=== PATIENT | female | born 1985 | race Caucasian/White ===

== ENCOUNTER 2022-11-04 10:35 | Outpatient (CLI) | payer OTHER, SELFPAY | END 2022-11-04 10:36 | disposition home or self-care (01) | PROVIDERS: PCP Physician Assistant Medical; Visit Provider Physician Assistant Medical | DX: Z01.419 Encounter for gynecological examination (general) (routine) without abnormal findings (principal); I10 Essential (primary) hypertension; Z13.6 Encounter for screening for cardiovascular disorders; Z13.29 Encounter for screening for other suspected endocrine disorder | CPT/HCPCS: 80061; 84443 ==

== ENCOUNTER 2023-01-20 08:47 | Emergency (ER) | payer OTHER, SELFPAY ==
[2023-01-20] VITALS (9 sets, daily range): BP systolic 91–118; BP diastolic 47–72; PULSE 65–90; RESP 18; TEMP 36.6; O2SAT 97–100; BMI 28.1
--- NOTE | 2023-01-20 09:20 | ED_ITS ---
HPI - General Adult General Chief complaint: Headache/Migraine Stated complaint: +for covid has a migraine Time Seen by Provider: 01/20/23 08:57 History of Present Illness HPI narrative: Patient is a 37 year white female who has diagnosis of COVID 2-3 days ago. She has had pretty much the constellation of symptoms with COVID with mild sore throat had frontal headache diarrhea body aches. The patient are reports that she has not had a history of migraines but has some frontal pressure and headache. She has had trouble sleeping. She did receive vaccine and booster. She is otherwise quite healthy. She is allergic to penicillin and has had endometriosis and anxiety as well as mild blood pressure elevation. Related Data Home Medications Medication Instructions Recorded Confirmed cholecalciferol (vitamin D3) 50 50 mcg PO QDAY 07/03/22 09/15/22 mcg (2,000 unit) capsule Allergies Allergy/AdvReac Type Severity Reaction Status Date / Time Penicillins Allergy Intermediate Rash Verified 11/04/22 10:19 Review of Systems Status of ROS: Reports: 6 or more systems reviewed and unremarkable except as noted in History and below PFSH PFS Medical History ?Z34.90 - Encounter for supervision of normal , unspecified, unspecified trimester (ICD-10) Normal spontaneous vaginal delivery ?O80 - Encounter for full-term uncomplicated delivery (ICD-10) Infertility Surgical History History of laparoscopy ?Z98.890 - Other specified postprocedural states (ICD-10) Family History Family/Other Diabetes Hyperlipidemia Psychiatric disorder Mother Hyperlipidemia Father Psychiatric disorder Other Migraine Social History Narrative: engaged ( Stone); Dylan 18 month old son. 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 History of marijuana use Occasional alcohol consumption Smoking Status: Never smoker Do you use any of these nicotine containing products: None Second hand tobacco smoke exposure: No How often do you have a drink containing alcohol: monthly or less How many standard drinks containing alcohol do you have on a typical day: 1 or 2 How often do you have six or more drinks on one occasion: Never AUDIT-C Alcohol total score: 1 Non-prescribed substance use: denies use Little interest or pleasure in doing things: not at all Feeling down, depressed, or hopeless: not at all service: No Exam Narrative: Exam Narrative: Objective vital signs unremarkable Alert orient x3 Noncyanotic No facial asymmetry no scleral icterus mouth clear throat clear Neck is supple Denies abdominal pain, neurologic is grossly nonfocal Peripheral perfusion is good Const: Vital Signs, click to edit/add: Vital Signs - 24 hr 01/20/23 08:55 Temperature 97.8 F Pulse Rate [Pulse Oximeter] 77 Respiratory Rate 18 Blood Pressure [Ri ght Upper Arm] 118/72 Pulse Oximetry 98 Oxygen Delivery Me thod Room Air Course Vital Signs Vital signs: Initial Vital Signs Temperature 97.8 F 01/20/23 08:55 Temperature Source Temporal Artery Scan 01/20/23 08:55 Pulse Rate 77 01/20/23 08:55 Pulse Rhythm Regular 01/20/23 08:55 Respiratory Rate 18 01/20/23 08:55 Blood Pressure 118/72 01/20/23 08:55 Blood Pressure Mean 87 01/20/23 08:55 Blood Pressure Position Supine 01/20/23 08:55 Pulse Oximetry 98 01/20/23 08:55 Oxygen Delivery Method Room Air 01/20/23 08:55 Vital Signs Temperature 97.8 F 01/20/23 08:55 Pulse Rate 77 01/20/23 08:55 Respiratory Rate 18 01/20/23 08:55 Blood Pressure 118/72 01/20/23 08:55 Pulse Oximetry 98 01/20/23 08:55 Oxygen Delivery Method Room Air 01/20/23 08:55 Temperature 97.8 F 01/20/23 08:55 Pulse Rate 77 01/20/23 08:55 Respiratory Rate 18 01/20/23 08:55 Blood Pressure 118/72 01/20/23 08:55 Pulse Oximetry 98 01/20/23 08:55 Oxygen Delivery Method Room Air 01/20/23 08:55 Medical Decision Making MDM Narrative Medical decision making narrative: Patient has stigmata of COVID-19 disease, with multiple symptoms consistent with that. I think at this point to help some of her symptomology be reasonable to give her IV fluid 1 L, Toradol 30 mg IV Benadryl 25 mg IV and Reglan 10 mg IV, also give her Solu-Medrol 125 IV. She denies . She has not had sexual activity for the last couple months, has had regular menstrual cycle, she also has trouble with infertility. She is very confident she is not . Will treat as above, and return if problems or concerns, update her regular doctor next 2-3 days, return to ED problems or concerns. Patient will get a ride home from her spouse. Discharge Plan Discharge Clinical Impression: COVID-19, Headache Patient Disposition: Home w/ Parent or Adult Condition: Stable Additional Instructions: Rest, fluids, Tylenol Advil as needed, light activity for the next 3-4 days. Return to primary care as needed, return to ED problems concerns. Return to ED if worsens or have other difficulty at her discretion. Activity Level: Light activity Discharge Diet: Regular Prescriptions: No Action cholecalciferol (vitamin D3) 50 mcg (2,000 unit) capsule 50 mcg PO QDAY Follow Up/Referrals: Christy Solomon PA-C [Primary Care Provider] - Stand Alone Forms: [employer] Info Instructions
[2023-01-20] MEDS: 0.9 % SODIUM CHLORIDE 1000 ml 1,000 ML 6000 ML IV (09:33)
[2023-01-20] MEDS: KETOROLAC 30 MG/ML inj IVP (09:41)
[2023-01-20] MEDS: diphenhydrAMINE 50 MG/ML inj 25 MG IVP (09:42)
[2023-01-20] MEDS: METHYLPREDNISOLONE SOD SUCC 62.5 MG/ML (125) 125 MG IVP (09:45)
[2023-01-20] MEDS: METOCLOPRAMIDE HCL 10 MG in 0.9 % SODIUM CHLORIDE 100 ml 100 ML 306 MG IV (09:56)
== END 2023-01-20 10:55 | disposition home or self-care (01) ==
PROVIDERS: Emergency Provider Family Medicine; PCP Physician Assistant Medical
DX: U07.1 COVID-19 (principal); R51.9 Headache, unspecified
CPT/HCPCS: 96374; 96375; 99283; 99284; J1200; J1885; J2765; J2930; J7030

== ENCOUNTER 2024-03-10 09:40 | Emergency (ER) | payer OTHER, SELFPAY ==
[2024-03-10 09:47] VITALS: BP 137/85; RESP 12; TEMP 36.4; O2SAT 99; BMI 24.8
--- NOTE | 2024-03-10 10:10 | CRLHL7_ITS ---
For Patients: As a result of the Century Cures Act, medical imaging exams and procedure reports are released immediately into your electronic medical record. You may view this report before your referring provider. If you have questions, please contact your health care provider. INDICATION: DIZZINESS TECHNIQUE: CT of the head was performed without IV contrast. COMPARISON: None. FINDINGS: Parenchyma: No acute hemorrhage, infarction, or mass. Ventricles and extra-axial spaces: Appropriate for age. Visualized paranasal sinuses: Mild mucosal retention cyst versus polyp of the left maxillary sinus. Mastoid air cells: Sclerotic right mastoid air cells. Bones: No focal abnormality. Additional comment: None. IMPRESSION: No acute intracranial abnormality. Please note that all CT scans at this facility use dose modulation, iterative reconstruction, and/or weight-based dosing when appropriate to reduce radiation dose to as low as reasonably achievable. Dictated by Johan Cordova MD @ 03/10/2024 11:12:01 AM (Electronically Signed)
--- NOTE | 2024-03-10 10:12 | ED.DIZZY ---
HPI - Dizziness General Chief Complaint: Dizziness/Vertigo Stated Complaint: dizziness/numbness in face/feels weird Time Seen by Provider: 03/10/24 10:03 History of Present Illness HPI Narrative: Patient is a 38-year-old woman who has had vertigo for the last 3-4 weeks. She seen her primary doctor to occasions and has had a consultation with [facility]. She has completed a course of antibiotics as well as prednisone. She is currently on allergy medication. Thing is been really helpful for her symptoms. Today her dizziness is worse and she feels like her vision is blurry. She has no other stroke symptoms such as numbness tingling weakness. She has been working with physical therapy they do not believe that she has benign positional vertigo. Patient is nauseous due to her dizziness and has a mild headache on the left. No other significant symptoms have been noted. Related Data Home Medications ?Medication ?Instructions ?Recorded ?Confirmed cholecalciferol (vitamin D3) 50 50 mcg PO QDAY 07/03/22 03/06/24 mcg (2,000 unit) capsule fluticasone propionate 50 1 spray intranasal QDAY 02/09/24 03/06/24 mcg/actuation nasal spray,suspension (Flonase Allergy Relief) Previous Rx's ?Medication ?Instructions ?Recorded ondansetron 4 mg disintegrating 4 mg PO Q8H PRN nausea and 02/19/24 tablet vomiting #30 tabs valacyclovir 1 gram tablet 1,000 mg PO BID #14 tabs 02/25/24 prednisone 20 mg tablet 40 mg (2 x 20 mg) PO QDAY #10 tabs 03/03/24 levocetirizine 5 mg tablet 5 mg PO QPM PRN allergy symptoms 03/06/24 #90 tabs Allergies Allergy/AdvReac Type Severity Reaction Status Date / Time Penicillins Allergy Intermediate Rash Verified 03/06/24 12:52 Review of Systems Status of ROS: Reports: 10 or more systems reviewed and unremarkable except as noted in History and below [facility] Medical History Skin infection ?L08.9 - Local infection of the skin and subcutaneous tissue, unspecified (ICD-10) ?Z34.90 - Encounter for supervision of normal , unspecified, unspecified trimester (ICD-10) Normal spontaneous vaginal delivery ?O80 - Encounter for full-term uncomplicated delivery (ICD-10) Infertility Surgical History History of laparoscopy ?Z98.890 - Other specified postprocedural states (ICD-10) Family History Family/Other Diabetes Hyperlipidemia Psychiatric disorder Mother Hyperlipidemia Father Psychiatric disorder Other Migraine Social History Narrative: engaged ( Stone); Dylan 18 month old son. 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 History of marijuana use Occasional alcohol consumption Smoking Status: Never smoker Do you use any of these nicotine containing products: None Second hand tobacco smoke exposure: No How often do you have a drink containing alcohol: monthly or less How many standard drinks containing alcohol do you have on a typical day: 1 or 2 How often do you have six or more drinks on one occasion: Never AUDIT-C Alcohol total score: 1 Non-prescribed substance use: denies use Little interest or pleasure in doing things: not at all Feeling down, depressed, or hopeless: not at all service: No Exam Narrative: Exam Narrative: EXAM GENERAL: Patient appears comfortable and well. EYES: No scleral icterus. ENT: Tympanic membranes and oropharynx normal. THYROID: no thyroid nodules or thyromegaly. LYMPH: No supraclavicular or cervical lymphadenopathy. SKIN: Visible skin seen during exam normal or with benign process only. EXT: No dependent lower extremity pedal edema. HEART: Regular rate and rhythm with no murmurs, rubs, or gallops. LUNGS: Clear to auscultation bilaterally with no crackles or wheezes. ABD: Soft, non tender, non distended. PSYCH: Good eye contact, speech is not pressured. Neurologic cranial nerves 2-12 grossly intact no focal defects. Const: Vital Signs, click to edit/add: Vital Signs - 24 hr 03/10/24 09:47 Temperature 97.6 F Respiratory Rate 12 Blood Pressure [Ri ght Upper Arm] 137/85 Pulse Oximetry 99 Oxygen Delivery Me thod Room Air Course Course ED Course: I am concerned about her symptoms and I do think CT of the head is reasonable. We will also give her 1 L of normal saline 4 mg of Zofran 50 mg of Benadryl and 30 mg of Toradol. Vital Signs Vital signs: Initial Vital Signs Temperature 97.6 F 03/10/24 09:47 Temperature Source Temporal Artery Scan 03/10/24 09:47 Pulse Rhythm Regular 03/10/24 09:47 Respiratory Rate 12 03/10/24 09:47 Blood Pressure 137/85 03/10/24 09:47 Blood Pressure Mean 102 03/10/24 09:47 Pulse Oximetry 99 03/10/24 09:47 Oxygen Delivery Method Room Air 03/10/24 09:47 Vital Signs Temperature 97.6 F 03/10/24 09:47 Respiratory Rate 12 03/10/24 09:47 Blood Pressure 137/85 03/10/24 09:47 Pulse Oximetry 99 03/10/24 09:47 Oxygen Delivery Method Room Air 03/10/24 09:47 Temperature 97.6 F 03/10/24 09:47 Respiratory Rate 12 03/10/24 09:47 Blood Pressure 137/85 03/10/24 09:47 Pulse Oximetry 99 03/10/24 09:47 Oxygen Delivery Method Room Air 03/10/24 09:47 Medications Administered Medications: Discontinued Medications Generic Name Dose Route Start Last Admin Trade Name Freq PRN Reason Stop Dose Admin Diphenhydramine HCl 50 mg 03/10/24 10:10 03/10/24 10:25 Diphenhydramine 50 Mg/Ml Inj IVP 03/10/24 10:11 50 mg ONCE ONE Administration Sodium Chloride 1,000 mls @ 1,000 mls/hr 03/10/24 10:11 03/10/24 11:32 0.9 % Sodium Chloride 1000 Ml IV 03/10/24 11:10 Infused .Q1H ELISSA Infusion Ketorolac Tromethamine 30 mg 03/10/24 10:10 03/10/24 10:25 Ketorolac 30 Mg/Ml Inj IVP 03/10/24 10:11 30 mg ONCE ONE Administration Ondansetron HCl 4 mg 03/10/24 10:10 03/10/24 10:24 Ondansetron 2 Mg/Ml Inj IVP 03/10/24 10:11 4 mg ONCE ONE Administration MDM - Dizziness MDM Narrative Medical decision making narrative: Patient presents with type clinical situation of refractory dizziness. She has seen primary care multiple times in is seen ear nose and throat. She is completing physical therapy. She has had a course of antibiotics and course of cortical steroids. She has a normal exam today. I did do a CT of her head which is unremarkable. At this point I would treat her symptoms with Ativan to get some rest over the next several days on a p.r.n. basis and would stop her Topamax at that seems to make things worse. I also recommended Neurology follow-up with likely MRI. Discharge Plan Discharge Clinical Impression: Vertigo Patient Disposition: Home, Self-Care Condition: Stable Instructions: Vertigo (ED) Additional Instructions: Discontinue Topamax Ativan as needed for breakthrough symptoms Contact her primary doctor to arrange neurology follow-up with MRI. Activity Level: No Restrictions Discharge Diet: Regular Prescriptions: No Action cholecalciferol (vitamin D3) 50 mcg (2,000 unit) capsule 50 mcg PO QDAY levocetirizine 5 mg tablet 5 mg PO QPM PRN (Reason: allergy symptoms) Qty: 90 1RF fluticasone propionate [Flonase Allergy Relief] 50 mcg/actuation spray,suspension 1 spray intranasal QDAY Rx Instructions: administer into each nostril ondansetron 4 mg tablet,disintegrating 4 mg PO Q8H PRN (Reason: nausea and vomiting) Qty: 30 0RF prednisone 20 mg tablet 40 mg PO QDAY Qty: 10 0RF valacyclovir 1 gram tablet 1,000 mg PO BID Qty: 14 0RF Follow Up/Referrals: Christy Solomon PA-C [Primary Care Provider] - Stand Alone Forms: [employer] Info Instructions
[2024-03-10] MEDS: ONDANSETRON 2 MG/ML inj 4 MG IVP (10:24)
[2024-03-10] MEDS: diphenhydrAMINE 50 MG/ML inj IVP (10:25)
[2024-03-10] MEDS: KETOROLAC 30 MG/ML inj IVP (10:25)
[2024-03-10] MEDS: 0.9 % SODIUM CHLORIDE 1000 ml 1,000 ML IV (11:12)
[2024-03-10 12:30] VITALS: O2SAT 97
[2024-03-10 12:31] VITALS: BP 126/75; PULSE 70; RESP 14
== END 2024-03-10 12:35 | disposition home or self-care (01) ==
PROVIDERS: Emergency Provider Internal Medicine; PCP Physician Assistant Medical
DX: R42 Dizziness and giddiness (principal)
CPT/HCPCS: 70450; 96374; 96375; 99283; J1200; J1885; J2405; J7030

== ENCOUNTER 2024-03-23 08:06 | Outpatient (CLI) | payer OTHER, SELFPAY ==
--- NOTE | 2024-03-23 08:15 | CRLHL7_ITS ---
For Patients: As a result of the Cures Act, medical imaging exams and procedure reports are released immediately into your electronic medical record. You may view this report before your referring provider. If you have questions, please contact your health care provider. INDICATION: Migraines. TECHNIQUE: Brain and temporal bone MRI without and with contrast. 20 cc of gadolinium based contrast administered. COMPARISON : Head CT from 03/10/2024. brain MRI from 11/14/2018. FINDINGS: The membranous labyrinths are normal in appearance, with no signal abnormality or malformation. No mass or pathologic enhancement within the internal auditory canals or the cerebellopontine angle cisterns. The cisternal and canalicular segments of the 7th/8th cranial nerve complexes are normal in appearance. The other imaged cranial nerve segments are normal in appearance. Brainstem and cerebellum are normal. No evidence of acute ischemia. No evidence of acute or chronic intracranial blood products. No mass or pathologic intracranial enhancement. No intracranial signal abnormality. No hydrocephalus or extra-axial collections. The pituitary gland, parasellar structures and optic chiasm are normal. All the major intracranial vascular structures demonstrate normal flow-related signal. The orbital contents are normal. No calvarial or skull base marrow replacing process. No obstructive sinus disease. No extracranial soft tissue findings. IMPRESSION: 1. Normal appearance of the internal auditory pathways on high resolution imaging of the temporal bones. No mass or pathologic enhancement within the internal auditory canals or CPA cisterns. Normal appearance of the 7th/8th cranial nerves. 2. No other significant intracranial pathology. Dictated by Zion Ghosh MD @ 03/24/2024 9:49:05 AM (Electronically Signed)
== END 2024-03-23 08:07 | disposition home or self-care (01) ==
LOC: MRI 08:06
PROVIDERS: PCP Physician Assistant Medical; Visit Provider Physician Assistant Medical
DX: G43.809 Other migraine, not intractable, without status migrainosus (principal); R42 Dizziness and giddiness
CPT/HCPCS: 70553; A9575

== ENCOUNTER 2024-03-27 09:30 | Outpatient (RCR) | payer OTHER, SELFPAY ==
--- NOTE | 2024-02-25 16:14 | PT.OPE ---
PT [place] Outpatient Eval PT [facility] Outpatient Eval Start: 02/25/24 10:53 Freq: Status: Active Protocol: Document 02/25/24 10:55 TARAH (Rec: 02/25/24 11:00 TARAH [id number]) E-signed By Dimitris Ayon DPT, MS Physical Therapy Outpatient Evaluation Insurance Information Insurance Name [employer] Medical Diagnosis Dizziness and giddiness Treating Diagnosis Dizziness, L vestibular hypofunction, sensory disorganization, imbalance. Subjective Subjective Patient is a 38 y.o. female who presents to PT with c/o high levels of dizziness of insidious origin 3 weeks ago. Describes sxs as mod-high levels of disorientation feeling like she is moving which has been worse on days with stormy weather. Decreased intensity of sxs during clear days without clouds. Notes L ear pressure, pain, crackling noises and occasional decreased hearing in her L ear . Dx with eustachian tube dysfunction by her provider Christy Solomon PA-C on 02/09/24 . Allergy medications made her itchy and drowsy with no noticeable sx improvement. Sxs changed primarily to dizziness sensations after her PA visit and was provided prednisone for a suspected vestibular neuritis at urgent care on 02/19/24. Today has been a bad day with elevated stress and anxiety. Denies room spinning dizziness with positional changes with increased sxs while sitting, looking at bright screens, extended computer use and elevated stress levels being most provoking. Standing provides some sx relief. Works from home for [employer] and has not been driving due to dizziness. Denies previous hx of vertigo. Meclizine caused increased fatigue and has not used recently. Sxs improve later in the day after her son goes to bed when she is able to relax with the middle of the day being most challenging . PMH includes depression and anxiety. Pt hopes to resolve dizziness to improve nataliya to daily activities and return to driving. 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 All BPPV testing negative. Significant time spent discussing different causes of dizziness and prognosis vestibular neuritis. Attempted vision exercises today but pt unable to nataliya introductory gaze stabilization, VOR cancellation and dynamic visual acuity exercises due to high levels of dizziness. [facility] clinic contacted following her session to inquire about a possible anti-viral medication or a second round of prednisone due to high levels of continued sxs and to increase nataliya to vestibular exercises during her follow up PT visit next week. Christy Solomon PA-C was not in the clinic today and request was forwarded to Dr. Pavel MD. He did not believe an anti- viral medication would be effective due to limited research showing effectiveness for vestibular neuritis sx improvement and he planned on contacting Fior to discuss this and her sxs with her. She responded well to MT and stretching with decreased sxs intensity and anxiety following today?s session. She would benefit from continued skilled therapy to address these limitations. Primary Functional Limitations Walking, uneven surfaces, quick head movements, walking in dark Plan of Care Rehabilitation Potential Excellent Physical Therapy Goals Therapy goals to be completed in 10 weeks: 1. 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 2. Patient will report resolution of dizziness sxs with all daily and work activities for >4 consecutive days. 3. Patient will display improved Romberg balance on firm and foam surfaces with eyes closed >6 sec with minimal sway to improve safety walking in dark and on compliant surfaces. 4. Pt will report >75% improvement in DHI questionnaire to significantly improve nataliya to daily activities. Coordination/Communication With Referral Source Treatment Plan/Direct Interventions Manual Therapy,Neuromuscular Re-ed,Therapeutic Exercises Frequency/Duration 1-2x per week for at least 6- 10 visits, decreasing frequency as able. Patient Will Be Discharged From Therapy Completion of LTG(s),Skills Plateau,Independent w/HEP, Independently Progressing Evaluation Billing Untimed Code Treatment Minutes 35 Complexity Moderate Certification Information Provider Signature Required Communication Only-No Signature Required
== END 2024-07-25 23:59 | disposition home or self-care (01) ==
PROVIDERS: PCP Physician Assistant Medical; Visit Provider Physician Assistant Medical
DX: H81.8X2 Other disorders of vestibular function, left ear (principal); R26.89 Other abnormalities of gait and mobility; Z51.89 Encounter for other specified aftercare
CPT/HCPCS: 97110; 97140; 97162

== ENCOUNTER 2024-03-29 15:05 | Outpatient (CLI) | payer OTHER, SELFPAY | END 2024-03-29 15:06 | disposition home or self-care (01) | PROVIDERS: PCP Physician Assistant Medical; Visit Provider Emergency Medicine | DX: R19.7 Diarrhea, unspecified (principal); R11.0 Nausea; Z13.6 Encounter for screening for cardiovascular disorders; Z13.1 Encounter for screening for diabetes mellitus | CPT/HCPCS: 80061; 82947; 86231; 86258; 86364 ==

== ENCOUNTER 2025-02-03 09:23 | Emergency (ER) | payer BC, SELFPAY ==
--- OUTSIDE RECORDS SUMMARY | 2024-03-23 05:00 | XMS_ITS ---
Author Organization [facility] Address [address] [place] [address] Care Team Providers Care Risk Advisor Name Role Phone Christy Solomon Primary Care Provider GABI Schulte [phone] REASON FOR VISIT Inner ear infection follow up, Seen on 03.13.24 Encounters Encounter Location Date Provider Diagnosis [facility] [address] [place] [address] 03/23/2024 GABI EDWARDS Plan Of Treatment No Information Progress Notes * Stephanie PARSONsDOB:1985 (39 yo F)Acc No.[id number]:03/23/2024 Patient: Fior Ho Provider: Roya EDWARDS MD :1985 A ge:38 Y S ex:Female Date:03/23/2024 Address:[address] [id number] Pcp:Christy Solomon Subjective: * Chief Complaints: * I nner ear infection follow up, Seen on 03.13.24 * Electronic signature of LESLIE EDWARDS MD on 02/03/2025 at 09:26 AM CDT Sign off status: Pending * Provider: Roya EDWARDS MD Date: 0 03/23/2024 Generated for Printi ng/Faxing/eTransmitting on: 0 02/03/2025 09:26 AM CDT
--- OUTSIDE RECORDS SUMMARY | 2025-02-03 09:26 | XMS_ITS | Clinical Summary ---
Author Organization [facility] Address [address] [place] [address] Care Team Providers Care Retail Route Supervisor Name Role Phone Elsewhere, Pcp Primary Care Provider Unavailabl e Source Comments Patient records contain information from all sites at [facility]. For routine questions regarding patient records, call [phone] during business hours, M-F 8:00 AM - 5:00 PM Central Time. Record requests for emergency care only can be directed to [phone] at any time.[facility] Allergies Active Allergy Reactions Criticality Noted Date Comments Penicillins Rash High 04/26/2006 Pt does not know the reaction happened as a child Medications LORazepam (Ativan) 0.5 mg tablet Take 0.5 mg by mouth as needed. 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 10/12/2019 Endometriosis 10/12/2019 Counseling Preconception 10/12/2019 Family History Medical History Relation Name Comments Depression Father Marv Suicide Attempts Father Marv Skin cancer Maternal Grandmother Elin Draper Hypertension Mother Chelsea Migraines Mother Chelsea Migraines Mother's Sister 1 Nubia Deleon Obesity Mother's Sister 2 Alma Draper Diabetes Paternal Grandmother Renetta Anxiety disorder Sister Ryan Relation Name Status Comments Father Marv Maternal Grandmother Elin Draper Mother Chelsea Mother's Sister 1 Nubia Deleon Mother's Sister 2 Alma Draper Paternal Grandmother Renetta Sister Ryan Social History Tobacco Use Types Packs/Day Years Used Date Smoking Tobacco: Never Passive Smoke Exposure: Past Smokeless Tobacco: Never Tobacco Cessation:Counseling Given: Not Answered Alcohol Use Standard Drinks/Week Comments Not Currently 3 (1 standard drink = 0.6 oz pur e alcohol) [facility] Utilities Answer Date Recorded In the past 12 months has e electric, gas, oil, or water company threatened to shut off services in your home? No 04/14/2024 Social Connection and Isolat ion Panel [NHANES] Answer Date Recorded In a typical week, how many times do you talk on the phone with family, friends, or neighbors? More than three times a week 08/23/2020 How often do you get togethe r with friends or relatives? Once a week 08/23/2020 How often do you attend chur ch or restoration services? Never 08/23/2020 Do you belong to any clubs o r organizations such as rastafarian groups, unions, fraternal or athletic groups, or school groups? No 08/23/2020 How often do you attend meet ings of the clubs or organizations you belong to? Never 08/23/2020 Are you , , di vorced, , never , or living with a partner? Living with partner 08/23/2020 AUDIT-C Answer Date Recorded Q1: How often do you have a drink containing alc ohol? 2-3 times a week 08/23/2020 Q2: How many drinks containi ng alcohol do you have on a typical day when you are drinking? 1 or 2 08/23/2020 Q3: How often do you have si x or more drinks on one occasion? Never 08/23/2020 Overall Financial Resource Strain (CARDIA) Answe r Date Recorded How hard is it for you to pa y for the very basics like food, housing, medical care, and heating? Not hard at all 08/23/2020 PHQ-2 Answer Date Recorded PHQ-2 Score 0 04/20/2024 [facility] - Occupational Stress Questionnaire Answer Date Recorded Do you feel stress - tense, restless, nervous, or anxious, or unable to sleep at night because your mind is troubled all the time - these days? Only a little 08/23/2020 Exercise Vital Sign Answer Date Recorde d On average, how many days pe r week do you engage in moderate to strenuous exercise (like a brisk walk)? 3 days 04/14/2024 On average, how many minutes do you engage in exercise at this level? 30 min 04/14/2024 Hunger Vital Sign Answer Date Recorded Within the past 12 months, y ou worried that your food would run out before you got the money to buy more. Never true 04/14/20 24 Within the past 12 months, t he food you bought just didn't last and you didn't have money to get more. Never true 04/14/2024 PRAPARE - Transportation Answer Date Re corded In the past 12 months, has l ack of transportation kept you from medical appointments or from getting medications? No 05/2024 In the past 12 months, has l ack of transportation kept you from meetings, work, or from getting things needed for daily living? No 04/14/2024 Depression Answer Date Recor ded PHQ-9 Total Score (max 27) 2 04/20 Nutrition Answer Date Recorded On average, how many serving s of fruits and vegetables do you eat per day (serving size is equal to 1 cup or approximately the size of a tennis ball)? 3-5 04/14/2024 Dental Answer Date Recorded Dental: Regular Dentist No 04/14/20 24 Employment Answer Date Recorded Employment status Employed but not working due t o illness or injury 04/14/2024 Housing Stability Answer Date Recorded What is your living situation today? I have a [facility] [place] [address] to live 04/14/2024 Education Answer Date Recorded What is the highest level of school you have completed or the highest degree you have received? 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 Not on file Not on file Not on file Last Filed Vital Signs Vital Sign Reading Time Taken Comments Blood Pressure 142/80 04/20/2024 7:59 AM CDT Pulse 60 04/20/2024 7:59 AM CDT Temperature 36.6 C (97.9 F) 05/05/2020 9:04 AM CDT Respiratory Rate 15 05/05/2020 9:04 AM CDT Oxygen Saturation 98% 05/05/2020 9:04 AM CDT Inhaled Oxygen Concentration - - Weight 72.5 kg (159 lb 13.3 oz) 04/20/2024 7:59 AM CDT Height 175.1 cm (5' 8.94) 04/20/2024 7:59 AM CD T Body Mass Index 23.65 04/20/2024 7:59 AM CDT Plan of Treatment Health Maintenance Due Date Last Done Comments Cervical/Vaginal Cancer Screening 1983 HIV Screening 1983 Lipid (Cholesterol) Screening 1983 Mammogram 1983 Hepatitis B Vaccines (1 of 3 - 19+ 3-dose series) 2002 COVID-19 Vaccine ( season) 2024 09/12/2021, 12/31/2020, 12/10/2020 Influenza Vaccine (#1) 2024 06/25/2020 Depression Screening (Annual PHQ-2) 09/06/2024 DTaP,Tdap,and Td Vaccines (3 - Td or Tdap) 02/25/2031 02/25/2021, 04/19/1996 Hepatitis B Screening Discontinued 08/08/2019 HPV Vaccines Aged Out No longer eligi ble based on patient's age to complete this topic IPV Vaccines Aged Out No longer eligi ble based on patient's age to complete this topic Pneumococcal vaccine (0-49 years) Aged Out No longer eligible b ased on patient's age to complete this topic Procedures Procedure Name Priority Date/Time Associated Diagnosis Comments HEPATITIS B SURFACE ANTIGEN Routine 08/08/2019 10:20 AM GROUT WORKER from Last 3 Months or Most Recently Relevant to Health Maintenance Results * Hepatitis B Surface Antigen (08/08/2019 10:20 AM GROUT WORKER) EXT Hepatitis B Surface Ag Negative EXTERNAL NON-INTERFACE D LAB Blood (Blood, Venous) us Ordering Provider External M.D. LAB MICROBIOLOGY - BLOOD ORDERABLES Final Result EXTERNAL NON-INTERFACED LAB [address] [place] [address] from Last 3 Months or Most Recently Relevant to Health Maintenance Insurance [facility] Address: [facility] [id number] [place] [address] Advance Directives For more information, please contact: [phone] * Full Code (Latest Code Status on File) Date Activated Date Inactivated Comments 05/05/2020 8:36 AM 05/05/2020 11:42 AM Question Answer Comments Full Code: Discussed * Full Code Date Activated Date Inactivated Comments 05/05/2020 7:19 AM 05/05/2020 8:36 AM Question Answer Comments Full Code: Discussed Care Teams Retail Route Supervisor Relationship Specialty Start Date End Date Elsewhere, Pcp PCP - General Internal Medicine 04/17/24
--- OUTSIDE RECORDS SUMMARY | 2025-02-03 09:26 | XMS_ITS | Clinical Summary ---
Author Organization Lead Address [address] [facility] [place] [address] Care Team Providers Care Radio Presenter Name Role Phone No Ref-Primary, Physician Primary Care Provider Jose Dominguez MD Unavailable Allergies Active Allergy Reactions Criticality Noted Date Comments Penicillins 04/26/2006 Penicillins High 12/28/2011 Pt does not know the reaction happened as a child Medications UNKNOWN MED DOSAGE mini pill Active IBUPROFEN None Entered Active AZITHROMYCIN 500 MG OR TABSIndications: Acute pharyngitis 1 TABLET DAILY 5 0 6 Active Additional Information Patient not taking.Reported on 10/22/2017 Active Problems Problem Noted Date Diagnosed Date CARDIOVASCULAR SCREENING; LDL GOAL LESS THAN 160 12/28/2011 Family History Medical History Relation Comments Hypertension Mother Relation Status Comments Father Alive Mother Alive Social History Tobacco Use Types Packs/Day Years Used Date Smoking Tobacco: Never Smokeless Tobacco: Never Alcohol Use Standard Drinks/Week Comments No 0 (1 standard drink = 0.6 oz pur e alcohol) Adolescent Education Answer Date Record ed Getting School Help Needed Not on file 06/22 Comments Unknown Sex and Gender Information Value Date Recorded Sex Assigned at Female 06/02/2024 10:49 AM CDT Legal Sex Female 4:43 AM ROD FINISHER Gender Identity Female 06/02/2024 10:49 AM CDT Sexual Orientation Straight 06/02/2024 10 :49 AM CDT Last Filed Vital Signs Vital Sign Reading Time Taken Comments Blood Pressure 112/78 10/22/2017 8:54 PM ROD FINISHER Pulse 100 10/22/2017 8:54 PM ROD FINISHER Temperature 36.7 C (98.1 F) 10/22/2017 8:54 PM ROD FINISHER Respiratory Rate 16 10/22/2017 8:54 PM ROD FINISHER Oxygen Saturation 97% 10/22/2017 8:54 PM ROD FINISHER Inhaled Oxygen Concentration - - Weight 74.8 kg (165 lb) 10/22/2017 8:54 PM ROD FINISHER Height 175.3 cm (5' 9) 12/28/2011 4:33 PM CDT Body Mass Index 24.37 12/28/2011 4:33 PM CDT Plan of Treatment Health Maintenance Due Date Last Done Comments ADVANCE CARE PLANNING 1983 ANNUAL REVIEW OF HM ORDERS 1983 DIABETES SCREENING 1983 MAMMO SCREENING 1983 YEARLY PREVENTIVE VISIT 1986 HIV SCREENING 1998 HEPATITIS C SCREENING 2001 HEPATITIS B VACCINE (1 of 3 - 19+ 3-dose series) 2002 PAP 2004 LIPID 2023 COVID-19 VACCINE (4 - 2023-2 5 season) 2024 09/12/2021, 12/31/2020, 12/10/2020 PHQ-2 (once per calendar year) 2024 INFLUENZA VACCINE (Season Ended) 2025 06/25/2020 DTAP/TDAP/TD VACCINE (3 - Td or Tdap) 02/25/2031 02/25/2021, 04/19/1996 ZOSTER VACCINE (1 of 2) 2033 HPV VACCINE Aged Out No longer eligi ble based on patient's age to complete this topic MENINGITIS VACCINE Aged Out No longer eligible based on patient's age to complete this topic PNEUMOCOCCAL VACCINE: PEDIATRICS (0 to 5 YEARS) AND AT-RISK PATIENTS (6 to 49 YEARS) Aged Out No longer eligible b ased on patient's age to complete this topic Insurance [employer] Member Subscriber Plan / Payer (Ef fective 2006-Present) Name:Kp Scanlon Relation to Subscriber:Self Name:Kp Scanlon Payer ID:[id number] (NAIC) Type:PPO Address: [facility] [id number] [place] [id number] [employer] Care Teams Radio Presenter Relationship Specialty Start Date End Date No Ref-Primary, Physician PCP - General 10/22/17 Jose Dominguez MD Family Practice 10/22/17
--- OUTSIDE RECORDS SUMMARY | 2025-02-03 09:26 | XMS_ITS | Patient Health Record ---
Author Organization [facility] Address [address] [place] [address] Care Team Providers Care Nuclear Power Reactor Operator Name Role Phone Christy Solomon Primary Care Provider GABI Schulte Unavailable [phone] Allergies Allergen (clinical drug ingredient) Drug/Non Drug Allergy documented on EMR Reaction Allergy Type Onset Date Status Penicillin Unknown Drug Allergy Active Reason For Referral No Information Medications Medication SIG (Take, Route, Frequency, Duration) Notes Start Date End Date Status Levocetirizine Dihydrochloride 5 MG Tablet take 1 tablet by mouth every evening as needed for allergy symptoms* Oral; Duration: 90 Days Active Topiramate 25 MG Tablet Take 1 tablet by mouth at bedtime for 1 week, then 1 tablet twice a day for 1 week, then 1 tablet in the morning and 2 tablets in the evening for 1 week, then 2 tablets twice a day* Oral; Duration: 40 Days Active LORazepam 0.5 MG Tablet Oral; Duration: 5 Days Active Social History Tobacco Use: Social History Observation Description Date Details (start date - stop date) Never Smoker NA - NA Social History Alcohol Use: Social Info Question Answer Notes Recreational drugs Recreational Drug Use: No Alcohol Screen Did you have a drink containing alcohol in the past year? Yes How often did you have 6 or more drinks on one occasion in the past year? Less than monthly (1 point) How many drinks did you have on a typical day when you were drinking in the past year? 1 or 2 drinks (0 point) How often did you have a drink containing alcohol in the past year? 2 to 4 drinks a month (2 points) Drug/Alcohol: Social Info Question Answer Notes AUDIT-C (Standard) Did you have a drink containing alcohol in the past year? Yes How often did you have six or more drinks on one occasion in the past year? Less than monthly (1 point) How many drinks did you have on a typical day when you were drinking in the past year? 1 or 2 drinks (0 point) How often did you have a drink containing alcohol in the past year? 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 Problems Problem Type SNOMED Code ICD Code Onset Dates Problem Status W/U Status Risk Notes Problem Dizzy (506355146) Dizzy (R42) Active confirmed Problem Migraine (18906789) Migraine syndrome (G43.909) Active confirmed Vital Signs Height-cm 172.72 cm 03/13/2024 Weight-kg 73.94 kg 03/13/2024 Height 68 in 03/13/2024 Weight 163 lbs 03/13/2024 BMI 24.78 kg/m2 03/13/2024 Encounters Encounter Location Date Provider Diagnosis [facility] [id number] [place] [id number] 03/13/2024 GABI GRACE Migraine syndrome G43.909 and Dizzy R42 Assessments Encounter Date Diagnosis (ICD Code) Assessment Notes Treatment Notes Treatment Clinical Notes Section Notes 03/13/2024 Dizzy (ICD-10 - R42) Dizziness secondary to migraine. Mainstay of treatment to treat the migraine. Previous audiogram was reviewed and shows a normal hearing. Ear exam was normal. Her pattern of symptoms is not consistent with the inner ear source of dizziness. 03/13/2024 Migraine syndrome (ICD-10 - G43.909) She has symptoms typical for migraine associated vestibulopathy. I educated her that the main treatment that would help her with the dizziness would be to treat the migraines. She tried Topamax prescribed by her doctor but could not tolerate that medication so she has not taking it now. We discussed that she could follow up with the primary care doctor potentially see Neurology if not improving. Discussed getting regular exercise and regular sleep. 03/13/2024 Other Deciding to doni t drinking alcohol material was published Plan Of Treatment No Information Insurance Providers Payer Name Payer Address Payer Phone Subscriber Number Group Number Insured Name Patient Relationship to Insured Coverage Start Date Coverage End Date [employer] [address] [place] [id number] Fior Scanlon Self - patient is the insured Medical (General) History Medical History History ICD Code Conditions/Illness:: Anxiety Other Medical problems:: Mundo roberts in past and family history possible vestibular migraine currently Surgical History Surgery Date(Month/Year) Laparoscopic surgery to confirm endometr iosis
--- NOTE | 2025-02-03 09:27 | CRLHL7_ITS ---
For Patients: As a result of the Cures Act, medical imaging exams and procedure reports are released immediately into your electronic medical record. You may view this report before your referring provider. If you have questions, please contact your health care provider. INDICATION: Chest pain, not otherwise described. COMPARISON: 06/06/2019 TECHNIQUE: Single AP view of the chest. FINDINGS: Medical Devices: None. Lung Volumes: Adequate inspiration. No significant atelectasis. Lungs: Clear lungs. Pleura and Pleural spaces: No significant pleural effusion. No pneumothorax. Mediastinum: Normal cardiomediastinal silhouette. Bony Thorax and Soft Tissues: No significant incidental findings. IMPRESSION: Normal study. No findings to explain the clinical history of chest pain, not otherwise described. Dictated by Otis Moran MD @ 02/03/2025 10:14:13 AM (Electronically Signed)
[2025-02-03 09:28] VITALS: BP 150/92; PULSE 91; RESP 16; TEMP 36.3; O2SAT 97; BMI 24.8
--- NOTE | 2025-02-03 09:34 | ED_ITS ---
HPI - General Adult General Chief complaint: Chest Pain Stated complaint: woke up this am with chest pain Time Seen by Provider: 02/03/25 09:26 History of Present Illness HPI narrative: Patient is a 39 year white female who woke up this morning with some substernal chest tightness. Seems to be a little bit better but still present. Worse when she takes a deep breath. No history of bleeding or clotting problems no leg swelling or edema no recent travel. The patient has had no cardiac history or lung history. She has occasional headaches, has endometriosis and anxiety. Patient presents with her family. She has not any difficulty with respiration or diaphoresis or nausea. Had no neck pain or arm pain. Related Data Allergies Allergy/AdvReac Type Severity Reaction Status Date / Time Penicillins Allergy Intermediate Rash Verified 06/03/24 10:08 Review of Systems Status of ROS: Reports: 6 or more systems reviewed and unremarkable except as noted in History and below [facility] Nausea ?R11.0 - Nausea (ICD-10) Screening for hyperlipidemia ?Z13.220 - Encounter for screening for lipoid disorders (ICD-10) Screening for diabetes mellitus ?Z13.1 - Encounter for screening for diabetes mellitus (ICD-10) Diarrhea ?R19.7 - Diarrhea, unspecified (ICD-10) Vestibular migraine ?G43.809 - Other migraine, not intractable, without status migrainosus (ICD- 10) Skin infection ?L08.9 - Local infection of the skin and subcutaneous tissue, unspecified (ICD-10) ?Z34.90 - Encounter for supervision of normal , unspecified, unspecified trimester (ICD-10) Normal spontaneous vaginal delivery ?O80 - Encounter for full-term uncomplicated delivery (ICD-10) Infertility Surgical History History of laparoscopy ?Z98.890 - Other specified postprocedural states (ICD-10) Family History Family/Other Diabetes Hyperlipidemia Psychiatric disorder Mother Hyperlipidemia Migraine Father Psychiatric disorder Social History Narrative: engaged ( Stone); Dylan 18 month old son. 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 History of marijuana use Occasional alcohol consumption Smoking Status: Never smoker Do you use any of these nicotine containing products: None Second hand tobacco smoke exposure: No How often do you have a drink containing alcohol: monthly or less How many standard drinks containing alcohol do you have on a typical day: 1 or 2 How often do you have six or more drinks on one occasion: Never AUDIT-C Alcohol total score: 1 Non-prescribed substance use: denies use service: No Exam Narrative: Exam Narrative: Objective: General patient is no apparent distress talks in even unlabored sentences Alert orient x3 No facial asymmetry Neck is supple chest clear Heart rhythm regular heart murmur There is mildly palpable parasternal discomfort to palpation. Abdomen benign Extremities are no edema Neurologic nonfocal. Const: Vital Signs, click to edit/add: Vital Signs - 24 hr 02/03/25 09:28 02/03/25 10:03 Temperature 97.3 F L Pulse Rate [Pulse Oximeter] 91 Respiratory Rate 16 Blood Pressure [Ri ght Upper Arm] 150/92 H Pulse Oximetry 97 99 Oxygen Delivery Me thod Room Air Course Vital Signs Vital signs: Initial Vital Signs Temperature 97.3 F L 02/03/25 09:28 Temperature Source Temporal Artery Scan 02/03/25 09:28 Pulse Rate 91 02/03/25 09:28 Respiratory Rate 16 02/03/25 09:28 Blood Pressure 150/92 H 02/03/25 09:28 Blood Pressure Mean 111 H 02/03/25 09:28 Pulse Oximetry 97 02/03/25 09:28 Oxygen Delivery Method Room Air 02/03/25 09:28 Vital Signs Temperature 97.3 F L 02/03/25 09:28 Pulse Rate 91 02/03/25 09:28 Respiratory Rate 16 02/03/25 09:28 Blood Pressure 150/92 H 02/03/25 09:28 Pulse Oximetry 97 02/03/25 09:28 Oxygen Delivery Method Room Air 02/03/25 09:28 Temperature 97.3 F L 02/03/25 09:28 Pulse Rate 91 02/03/25 09:28 Respiratory Rate 16 02/03/25 09:28 Blood Pressure 150/92 H 02/03/25 09:28 Pulse Oximetry 99 02/03/25 10:03 Oxygen Delivery Method Room Air 02/03/25 09:28 Medications Administered Medications: Discontinued Medications Generic Name Dose Route Start Last Admin Trade Name Binta PRN Reason Stop Dose Admin Aspirin 324 mg 02/03/25 09:26 02/03/25 09:52 Aspirin 81 Mg Tab.Chew PO 02/03/25 09:27 324 mg ONCE ONE Administration Sodium Chloride 500 mls @ 500 mls/hr 02/03/25 09:26 02/03/25 10:24 0.9 % Sodium Chloride 500 Ml IV 02/03/25 10:25 Infused .Q1H ONE Infusion Medical Decision Making MDM Narrative Medical decision making narrative: [age] year white female woke up with pleuritic chest pain today. Patient is no longer cardiac history. At this point I think rule out acute coronary syndrome, pulmonary embolus, pneumothorax, musculoskeletal pain, anxiety would be appropriate. Patient will get a dining car waiter/waitress, oximeter, cardiac enzyme, chest x-ray, IV and IV fluid, D-dimer and lab studies. Disposition pending findings. Addendum 10:35 a.m.: The EKG by my review shows normal sinus rhythm no EKG changes, chest x-ray by my review shows no findings no reason for chest pain, is no pneumothorax. The patient's troponin D-dimer and other labs are un remarkable. I think she might have chest wall discomfort, would recommend anti- inflammatory such as ibuprofen or Aleve for the next several days, follow-up with primary care not improving changes worsening concerns. The patient comfortable plan will follow up as directed. She does think she lifted a box yesterday that might have bothered her chest. She will follow up with regular doctor return to ED as needed. Lab Data Labs: Lab Results 02/03/25 02/03/25 Range/Units 09:28 09:45 WBC 8.34 (4.50-11.00) K/uL RBC 4.90 (4.00-5.20) m/uL Hgb 14.1 (12.0-16.0) gm/dL Hct 41.4 (33.0-51.0) % MCV 85 (80-100) fL MCH 29 (26-34) pg MCHC 34 (32-36) gm/dL RDW Coeff of Meghan 12.3 (11.5-15.5) % Plt Count 206 (140-440) K/uL Neut % (Auto) 73.5 H (42.0-72.0) % Lymph % (Auto) 18.9 L (20-44) % [place] % (Auto) 5.8 (0.0-11.0) % Eos % (Auto) 1.4 (0.0-7.0) % Baso % (Auto) 0.2 (0.0-3.0) % Neut # (Auto) 6.10 (1.7-7.0) K/uL Lymph # (Auto) 1.60 (0.90-2.90) K/uL [place] # (Auto) 0.50 (0.00-0.90) K/UL Eos # (Auto) 0.12 (0.00-0.50) K/uL Baso # (Auto) 0.02 (0.00-0.30) K/uL Abs Immat Gran (auto) 0.02 (0.00-0.30) K/uL Imm/Tot Granulo (auto) 0.2 % D-Dimer Quant (PE/DVT) < 0.27 (0.00-0.50) ug/ml Sodium 136 (135-149) mmol/L Potassium 4.1 (3.6-5.1) mmol/L Chloride 106 (96-114) mmol/L Carbon Dioxide 22 (20-32) mmol/L Anion Gap 8 (7-15) mEq/L BUN 15 (5-24) mg/dL Creatinine 0.7 (0.5-1.5) mg/dL Estimated Creat Clear 106.69 Estimated GFR 111 ml/min Glucose 104 (60-115) mg/dL Calcium 9.2 (8.4-10.6) mg/dL C-Reactive Protein < 0.5 L (0.5-1.0) mg/dL POC Troponin I 0.00 L (0.01-0.04) ng/ml Discharge Plan Discharge Clinical Impression: Acute chest wall pain Patient Disposition: Home w/ Parent or Adult Condition: Stable Additional Instructions: Advil or Aleve the next few days, light activity, follow up with regular doctor in 3-4 days, return to the ED sooner problems concerns. Activity Level: Light activity Discharge Diet: Regular Follow Up/Referrals: Karyn Chambers MD [Primary Care Provider, Family Practice] Stand Alone Forms: [employer] Info Instructions
[2025-02-03] MEDS: 0.9 % SODIUM CHLORIDE 500 ML 500 ML IV (09:52)
[2025-02-03] MEDS: ASPIRIN 81 MG TAB.CHEW 324 MG PO (09:52)
[2025-02-03 09:55] LABS: Basophils Absolute Auto 0.02 K/uL (0.00-0.30); Basophils Percent Auto 0.2 % (0.0-3.0); Eosinophils Absolute Auto 0.12 K/uL (0.00-0.50); Eosinophils Percent Auto 1.4 % (0.0-7.0); Hematocrit 41.4 % (33.0-51.0); Hemoglobin* 14.1 gm/dL (12.0-16.0); Immature Granulocytes Abs Auto 0.02 K/uL (0.00-0.30); Immature Granulocytes Pct Auto 0.2 %; Lymphocytes Percent Auto 18.9 % (20-44); Mean Corpuscular HGB Conc 34 gm/dL (32-36); Mean Corpuscular Hemoglobin 29 pg (26-34); Mean Corpuscular Volume 85 fL (80-100); Monocytes Percent Auto 5.8 % (0.0-11.0); Neutrophils Percent Auto 73.5 % (42.0-72.0); Platelet Count* 206 K/uL (140-440); RDW Coefficient of Variation % 12.3 % (11.5-15.5); White Blood Count* 8.34 K/uL (4.50-11.00)
[2025-02-03 10:02] VITALS: PULSE 64; O2SAT 99
[2025-02-03 10:03] VITALS: O2SAT 99
[2025-02-03 10:10] LABS: Slide Review Reflex No
[2025-02-03 10:15] VITALS: PULSE 67; RESP 20; O2SAT 99
[2025-02-03 10:23] LABS: D Dimer Quantitative* < 0.27 ug/ml (0.00-0.50)
[2025-02-03 10:30] VITALS: PULSE 71; RESP 23; O2SAT 100
[2025-02-03 10:32] LABS: Anion Gap 8 mEq/L (7-15); Blood Urea Nitrogen* 15 mg/dL (5-24); C Reactive Protein* < 0.5 mg/dL (0.5-1.0); Calcium* 9.2 mg/dL (8.4-10.6); Carbon Dioxide* 22 mmol/L (20-32); Chloride* 106 mmol/L (96-114); Creatinine* 0.7 mg/dL (0.5-1.5); Est. Creatinine Clearance* 106.69; Estimated Glomerular Filt Rate 111 ml/min; Glucose* 104 mg/dL (60-115); Potassium* 4.1 mmol/L (3.6-5.1); Sodium* 136 mmol/L (135-149)
[2025-02-03 10:54] LABS: NT Pro B Type NatriureticPept* 61 pg/mL (See Note)
== END 2025-02-03 10:43 | disposition home or self-care (01) ==
PROVIDERS: Emergency Provider Family Medicine; PCP Emergency Medicine
DX: R07.89 Other chest pain (principal)
CPT/HCPCS: 36415; 71045; 80048; 83880; 84484; 85025; 85379; 86140; 93005; 94761; 99285; A9270; J7030

== ENCOUNTER 2025-08-08 11:27 | Outpatient (CLI) | payer BC, SELFPAY | END 2025-08-08 11:28 | disposition home or self-care (01) | PROVIDERS: Visit Provider Obstetrics & Gynecology | DX: N91.5 Oligomenorrhea, unspecified (principal) | CPT/HCPCS: 83001; 83498; 84146; 84270; 84402; 84403; 84443 ==